=== PATIENT | male | born 1975 | race Caucasian/White ===

== ENCOUNTER → 2016-07-19 | Outpatient (CLI) | payer BC ==
--- OUTSIDE RECORDS SUMMARY | 2016-07-19 10:39 | XMS REPORT | Continuity of Care Document ---
Author Author [facility] Organization [facility] Address Unknown Phone Unavailable Care Team Providers Care Needlemaker Name Role Phone PCP Unavailable Source Comments Some departments are not documenting in the electronic medical record. If you do not see the information that you expected, contact Release of Information in the Health Information Management department at [phone] for further assistance in locating additional records.[facility] Active Allergies and Adverse Reactions Not on File Current Medications Not on file Active Problems Not on file Social History Tobacco Use Types Packs/Day Years Used Date Never Assessed Plan of Care Health Maintenance Due Date Last Done Comments Physical (Comprehensive) 1983 Exam Pertussis Vaccine 1987 Tetanus Vaccine 1993 Influenza Vaccine 02/09/2015 Results from Last 3 Months Not on file
--- NOTE | 2016-07-19 15:21 | Diagnostic Imaging Report ---
Three views of the right shoulder. INDICATION: Right shoulder pain. FINDINGS: There is no fracture, dislocation, or radiopaque foreign body. The acromioclavicular and glenohumeral joints have normal alignment. There is minimal degenerative hypertrophy of the AC joint with minimal superior osteophytes seen. No inferior osteophytes. IMPRESSION: Minimal AC joint degenerative changes. Dictated by: Dictated on workstation # [id number]
== END ==
LOC: RAD 10:35
PROVIDERS: ATTEND Nurse Practitioner Family
DX: M25.511 Pain in right shoulder (principal)
CPT/HCPCS: 73030

== ENCOUNTER → 2017-05-16 | Outpatient (CLI) | payer BC ==
--- NOTE | 2017-05-16 13:26 | Diagnostic Imaging Report ---
Three views of the left ribs. INDICATION: Left rib pain after injury. FINDINGS: No fracture, dislocation or radiopaque foreign body is seen. The left lung is clear. IMPRESSION: Unremarkable exam. Dictated by: Dictated on workstation # [id number]
== END ==
LOC: RAD 09:37
DX: R07.81 Pleurodynia (principal)
CPT/HCPCS: 71100

== ENCOUNTER 2018-12-13 11:10 | Emergency (ER) | payer BC ==
[~2018-12-13] VITALS: Ht 172.7 cm; Wt 74.8 kg
--- OUTSIDE RECORDS SUMMARY | 2018-12-13 11:29 | XMS REPORT | Continuity of Care Document ---
Author Organization Unknown Address Unknown Allergies There is no data. Medications There is no data. Problems Date Dx Coded Attending Type Code Diagnosis Diagnosed By 01/11/2015 Ot 599.70 01/11/2015 Ot 724.1 01/11/2015 Ot 724.2 01/11/2015 Ot 791.0 01/11/2015 Ot V13.01 01/11/2015 Ot 722.4 01/11/2015 Ot 786.50 01/11/2015 Ot 725 01/11/2015 Ot 780.79 01/11/2015 Ot 785.6 01/11/2015 Ot 786.50 01/11/2015 Ot V81.5 01/13/2015 MELBA MOORE APRN Ot 724.1 01/13/2015 MELBA MOORE APRN Ot 724.2 01/28/2015 MELBA MOORE APRN Ot 724.1 01/28/2015 MELBA MOORE APRN Ot 724.2 07/19/2016 Ot 599.70 HEMATURIA, UNSPECIFIED 07/19/2016 Ot 724.1 PAIN IN THORACIC SPINE 07/19/2016 Ot 724.2 LUMBAGO 07/19/2016 Ot 791.0 PROTEINURIA 07/19/2016 Ot V13.01 PERSONAL HISTORY OF URINARY CALCULI 07/19/2016 Ot 722.4 CERVICAL DISC DEGEN 07/19/2016 Ot 786.50 CHEST PAIN NOS 07/19/2016 Ot 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 Results There is no data. Encounters ACCT No. Visit Date/Time Discharge Status Pt. Type Provider Facility Loc./Unit Complaint [id number] 05/16/2017 09:37:00 05/16/2017 23:59:59 CLS Outpatient JENIFER BAY MD [facility] RAD R07.81 [id number] 07/19/2016 10:35:00 07/19/2016 23:59:59 CLS Outpatient MELBA MOORE APRN [facility] RAD PAIN IN RT SHOULDER [id number] 01/11/2015 12:47:00 01/11/2015 23:59:59 CLS Outpatient MELBA MOORE APRN [facility] RAD BACKACHE [id number] 06/10/2014 14:44:00 06/10/2014 23:59:59 CLS Outpatient MICHEAL SOMERS [facility] QUICK [id number] 07/12/2012 08:34:00 Document Registration [id number] 07/01/2012 15:39:00 Document Registration [id number] 07/17/2011 16:14:00 Document Registration [email or web address] 01/11/2015 12:49:14 ACT Document Registration
--- NOTE | 2018-12-13 12:13 | NUR ---
pt here by self. pt alert gcs 15.pt says " my backs out". pt denies recent injury but says been working out at the gym" tried new lift". pt been c/o and holding right anterior ribs and right back . pain rating " 12". pt has h/o back pain and is out of his vicodin. pt relates dyspnea as " hurts to breath". no acute sighns of dyspnea noted. lungs equal cta bilaterally. pain been going on x 3 days. done karishma pt at 1218.
--- NOTE | 2018-12-13 12:22 | ED Back Pain ---
General Chief Complaint: Back Problems Stated Complaint: BACK PAIN Source of Information: Patient Exam Limitations: No Limitations History of Present Illness Date Seen by Provider: Dec 13, 2018 Time Seen by Provider: 12:20 Initial Comments To ER with right-sided thoracic back pain for about 3 days. It hurts worse with deep breathing, hurts worse with movement or twisting. He suspects that he injured it while at the gym. History of chronic back pain, is on hydrocodone 10/325 4 times daily, ran out of that yesterday. He denies fevers chills cough or shortness of breath. He sees Dr. Bay and has historically received steroid injections into this area for the pain and states that they did help. When he takes a deep breath the pain radiates around to the front. Location: T-Spine Timing/Duration: 2-3 Days Severity: Severe Pain/Injury Location: Back Associated Symptoms: denies symptoms Allergies and Home Medications Allergies Coded Allergies: No Known Drug Allergies (Unverified , 12/13/18) Home Medications Hydrocodone/Acetaminophen 1 Each Tablet, 1 TAB PO Q6H PRN for PAIN-MODERATE Prescribed by: AUTUMN MARRUFO on 12/13/18 1257 Prednisone 20 Mg Tab, 40 MG PO DAILY Prescribed by: AUTUMN MARRUFO on 12/13/18 1258 Patient Home Medication List Home Medication List Reviewed: Yes Review of Systems Constitutional: see HPI; No chills, No fever EENTM: see HPI Respiratory: see HPI; No short of breath; other (chloride 90) Cardiovascular: see HPI Genitourinary: no symptoms reported Musculoskeletal: no symptoms reported Past Wflvzop-Shbljb-Largvp Hx Patient Social History Recent Foreign Travel: No Contact w/Someone Who Travel: No Physical Exam Vital Signs Vital Signs - First Documented 12/13/18 12:13 Temp 98.0 Pulse 92 Resp 20 B/P (MAP) 130/76 (94) Capillary Refill : Height, Weight, BMI Height: '" Weight: lbs. oz. kg; BMI Method: General Appearance: No Apparent Distress, WD/WN HEENT: PERRL/EOMI, TMs Normal Respiratory: Lungs Clear, Normal Breath Sounds, No Accessory Muscle Use, No Respiratory Distress, Other (right thoracic back at about the level of the sixth/seventh rib at the costovertebral junction there is tenderness to palpation) Gastrointestinal: Non Tender, Soft Neurologic/Psychiatric: Alert, Oriented x3 Skin: Normal Color, Warm/Dry Progress/Results/Core Measures Results/Orders My Orders Orders - AUTUMN MARRUFO APRN Ribs/Unilateral With Chest (12/13/18 12:17) Ketorolac Injection (Toradol Injection) (12/13/18 12:30) Medications Given in ED Current Medications Medications Dose Ordered Sig/Gilberto Route Start Time Stop Time Status Last Admin Dose Admin Ketorolac Tromethamine 30 mg ONCE ONCE IM 12/13/18 12:30 12/13/18 12:31 DC 12/13/18 12:30 30 MG Vital Signs/I&O 12/13/18 12:13 Temp 98.0 Pulse 92 Resp 20 B/P (MAP) 130/76 (94) Departure Impression Primary Impression: Thoracic back pain Qualified Codes: M54.6 - Pain in thoracic spine Disposition: 01 HOME, SELF-CARE Condition: Stable Departure-Patient Inst. Decision time for Depature: 12:57 Referrals: JENIFER BAY MD (PCP/Family) Primary Care Physician Patient Instructions: Upper Back Pain (DC) Add. Discharge Instructions: 1. Return to ER for any concerns 2. Follow-up with your doctor next week 3. All discharge instructions reviewed with patient and/or family. Voiced understanding. Scripts Prednisone (Prednisone) 20 Mg Tab 40 MG PO DAILY, #8 TAB 0 Refills Prov: AUTUMN MARRUFO APRN 12/13/18 Hydrocodone/Acetaminophen ([place] 10-325 Tablet) 1 Each Tablet 1 TAB PO Q6H PRN for PAIN-MODERATE MDD 5 TABS for 3 Days, #12 TAB Prov: AUTUMN MARRUFO APRN 12/13/18 AUTUMN MARRUFO APRN Dec 13, 2018 12:22
[2018-12-13] MEDS ORDERED: KETOROLAC 30 MG/ML VIAL IM ONE (12:30)
--- NOTE | 2018-12-13 12:54 | Diagnostic Imaging Report ---
PATIENT HISTORY: Right anterior and posterior lower rib pain and back pain. TECHNIQUE: Frontal view of the chest. Frontal and oblique views of the right ribs COMPARISON: 06/10/2014 FINDINGS: Lung volumes are normal. No focal consolidation is seen. There is no pleural effusion or pneumothorax. The cardiac silhouette is normal in size. No acute fracture is seen. Linear density overlying the right upper abdomen appears to represent a small catheter. IMPRESSION: 1. No acute osseous abnormality is seen in the right ribs. No acute pulmonary abnormality is seen. Dictated by: Dictated on workstation # [id number]
[2018-12-13] MEDS ORDERED: HYDR-4196 PO (12:57)
[2018-12-13] MEDS ORDERED: PRD20T PO (12:58)
[2018-12-13 13:20] VITALS: BP 94/60
--- NOTE | 2018-12-13 13:20 | NUR ---
d/c instructions to pt. told to read all papers. scripts paper only. pt left ambulatory by self. pt knows f/u. i went over the handtyped by information on the chart. pt had no iv. pt relates pain meds helped " i dont know yet".
== END 2018-12-13 13:20 | disposition home or self-care (01) ==
LOC: EDUNIT# 11:10 → ER 11:11
DX: M54.6 Pain in thoracic spine (principal); X50.1XXA Overexertion from prolonged static or awkward postures, initial encounter
CPT/HCPCS: 71101; 96372

== ENCOUNTER → 2021-12-14 | Outpatient (CLI) | payer BC ==
[~2021-12-14] MED LIST: HYDR-4196 PO; PRD20T PO
--- NOTE | 2021-12-14 16:27 | Diagnostic Imaging Report ---
Indication: Low back pain. Time of Exam: 3:17 PM AP and lateral views of the lumbar spine demonstrate normal curvature and alignment of lumbar spine. Vertebral body heights and disc spaces are well maintained. No fracture subluxation is seen. A tiny calcific density overlies the left renal shadow and may represent a renal calculus. Right abdominal calcification is noted which is indeterminate. Impression: 1. No acute bony abnormalities identified. 2. Probable left renal calculus. Dictated by: Dictated on workstation # [id number]
--- NOTE | 2021-12-14 16:28 | Diagnostic Imaging Report ---
INDICATION: Back pain. TIME OF EXAM: 3:18 p.m. FINDINGS: AP and lateral views of the thoracic spine were obtained. Curvature and alignment are normal. Vertebral body heights and disc spaces are well maintained. Pedicles and paraspinous line are intact. There is generalized degenerative disc disease. No fractures are seen. IMPRESSION: Thoracic spondylosis. No acute bony abnormality is detected. Dictated by: Dictated on workstation # [id number]
== END ==
LOC: RAD 14:41
PROVIDERS: ATTEND Family Medicine
DX: M47.814 Spondylosis without myelopathy or radiculopathy, thoracic region (principal)
CPT/HCPCS: 72072; 72100

== ENCOUNTER → 2022-11-17 | Outpatient (CLI) | payer BC ==
--- NOTE | 2022-11-17 17:05 | Diagnostic Imaging Report ---
INDICATION: Neck pain. COMPARISON: None available. TECHNIQUE: Three radiographs of the cervical spine dated 11/17/2022. FINDINGS: Straightening of the normal cervical lordosis without significant anterolisthesis or retrolisthesis. Mild scattered endplate degenerative changes are present, greatest within the lower cervical spine. No evidence of a recent vertebral body compression deformity. Mild disc space height loss at C5/C6, C6/C7, and C7/T1 with associated anterior osteophyte formation. No acute fracture or dislocation. No destructive osseous process. Prevertebral soft tissues are unremarkable. The dens is obscured by overlying teeth and osseous structures. The lateral masses are well seated. Prevertebral soft tissues are unremarkable. IMPRESSION: No acute osseous abnormality with mild degenerative changes, greatest within the lower cervical spine. Straightening of the normal cervical lordosis, which may simply be positional, though can also relate to muscle spasm. Dictated by: Dictated on workstation # [id number]
== END ==
LOC: RAD 12:51
PROVIDERS: ATTEND Family Medicine
DX: M47.812 Spondylosis without myelopathy or radiculopathy, cervical region (principal)
CPT/HCPCS: 72040